=== PATIENT | male | born 1980 | race African-American/Black ===

== ENCOUNTER 2024-01-15 08:51 | Inpatient (IN) | payer OTHER ==
[~2024-01-15] VITALS: Ht 170.2 cm; Wt 89.4 kg
[2024-01-15 10:01] LABS: BASOPHILS % 0.8 % (0.0-2.0); EOSINOPHILS % 2.6 % (0.0-5.0); HEMATOCRIT. 46.5 % (42.0-52.0); HEMOGLOBIN. 15.8 g/dL (14.0-18.0); LYMPHOCYTES % 37.1 % (20.0-50.0); MEAN CORPUSCULAR HGB CONC 33.9 g/dL (31.0-37.0); MEAN CORPUSCULAR VOLUME 91.7 fL (80.0-94.0); MEAN PLATELET VOLUME 7.8 fl (7.4-10.4); MONOCYTES % 6.7 % (2.0-8.0); NEUTROPHILS % 52.8 % (40.0-76.0); PLATELET 268 x1000/uL (130-400); RED BLOOD CELL COUNT 5.08 mill/uL (4.7-6.1); RED CELL DISTRIBUTION WIDTH 12.3 % (11.6-14.6)
[2024-01-15 10:11] LABS: PROTHROMBIN TIME 10.9 sec (9.6-11.0)
[2024-01-15 10:40] LABS: CLARITY URINE CLEAR (CLEAR); COLOR URINE YELLOW (YELLOW); GLUCOSE URINE NEGATIVE (NEGATIVE); KETONES URINE NEGATIVE (NEGATIVE); LEUKOCYTE ESTERASE URINE NEGATIVE (NEGATIVE); NITRITE URINE NEGATIVE (NEGATIVE); OCCULT BLOOD URINE NEGATIVE (NEGATIVE); PH URINE 6.5 (4.5-8.0); PROTEIN URINE TRACE (NEGATIVE)
[2024-01-15 10:43] LABS: ALANINE AMINOTRANSFERASE 43 IU/L (10-49); ALBUMIN 4.4 g/dL (3.2-4.8); ASPARTATE AMINOTRANSFERASE 27 IU/L (<34); BILIRUBIN TOTAL 0.9 mg/dL (0.1-1.0); CALCIUM 9.3 mg/dL (8.7-10.4); CARBON DIOXIDE 27 mEq/L (21-32); CHLORIDE 103 mEq/L (98-107); CREATININE 1.3 mg/dL (0.6-1.3); GLUCOSE 123 mg/dL (70-105); PROTEIN TOTAL 7.7 g/dL (6.0-8.3); SODIUM 138 mEq/L (136-145); TROPONIN I HIGH SENSITIVITY 5 ng/L (3.0-53); UREA NITROGEN BLOOD 10 mg/dL (9-23)
[2024-01-15 10:53] LABS: BACTERIA URINE NONE SEEN; RBC URINE 0-2 /hpf (0-2); SQUAMOUS EPITHELIAL CELL URINE RARE /lpf (RARE/1+); WBC URINE 0-2 /hpf (0-2); YEAST URINE NONE SEEN
[2024-01-15] MEDS: ASPIRIN 325MG TABLET PO ONE (11:24)
[2024-01-15] MEDS: LABETALOL 5MG/ML SYR 20 MG/4 ML SYRINGE IV ONE (12:30)
[2024-01-15 13:10] LABS: TROPONIN I HIGH SENSITIVITY 5 ng/L (3.0-53)
[2024-01-15 20:10] VITALS: BP 149/103; PULSE 68; RESP 17; TEMP 97.6
[2024-01-15] MEDS ORDERED: DEXTROSE 50% WATER 50ML SYRINGE IV PRN (22:45)
[2024-01-15] MEDS: AMLODIPINE 10MG TABLET PO NR (22:50)
[2024-01-15] MEDS: ACETAMINOPHEN 325MG TABLET PO PRN (22:50)
[2024-01-15 23:15] VITALS: BP 149/69; PULSE 68; RESP 17; TEMP 97.6
[2024-01-15] MEDS ORDERED: ERGO1250 (23:44)
[2024-01-15] MEDS ORDERED: ASPI-1497 MT (23:44)
[2024-01-16] VITALS: BP 132/72; PULSE 61; RESP 17; TEMP 97
[2024-01-16 04:00] VITALS: BP 139/79; PULSE 58; RESP 19; TEMP 97.4
[2024-01-16] MEDS ORDERED: CLONIDINE 0.1MG TABLET PO PRN (05:00)
[2024-01-16 05:08] LABS: CARBON DIOXIDE 25 mEq/L (21-32); CHLORIDE 103 mEq/L (98-107); CHOLESTEROL 151 mg/dL (<200); CREATININE 1.1 mg/dL (0.6-1.3); GLUCOSE 87 mg/dL (70-105); HDL CHOLESTEROL 25 mg/dL (>55); LDL CHOLESTEROL 120 mg/dL (5-100); POTASSIUM 3.7 mEq/L (3.5-5.1); SODIUM 137 mEq/L (136-145); TRIGLYCERIDE 139 mg/dL (0-150); UREA NITROGEN BLOOD 9 mg/dL (9-23)
[2024-01-16 05:47] LABS: HEMATOCRIT 47.3 % (42.0-52.0); HEMOGLOBIN 15.5 g/dL (14.0-18.0); MEAN CORPUSCULAR HEMOGLOBIN 29.7 pg (28.0-32.0); MEAN CORPUSCULAR HGB CONC 32.9 g/dL (31.0-37.0); MEAN CORPUSCULAR VOLUME 90.5 fL (80.0-94.0); PLATELET 252 x1000/uL (130-400); RED BLOOD CELL COUNT 5.23 mill/uL (4.7-6.1); RED CELL DISTRIBUTION WIDTH 12.5 % (11.6-14.6); WHITE BLOOD COUNT 8.3 x1000/uL (4.5-11.0)
[2024-01-16] MEDS: BLOOD SUGAR DIAGNOSTIC STRIP TEST SCH (07:22)
[2024-01-16 08:00] VITALS: BP 131/75; PULSE 65; RESP 18; TEMP 97.9
[2024-01-16 08:05] LABS: TROPONIN I HIGH SENSITIVITY 6 ng/L (3.0-53)
[2024-01-16] MEDS: INSULIN LISPRO 100 UNITS/ML SUBCUT SCH (08:10)
[2024-01-16] MEDS: AMLODIPINE 10MG TABLET PO SCH (08:37)
[2024-01-16] MEDS: ASPIRIN 81MG TABLET PO SCH (08:37)
[2024-01-16] MEDS: METOPROLOL TARTRATE 50MG TABLET PO SCH (08:37)
[2024-01-16] MEDS: ENOXAPARIN 40MG/0.4ML SYR SUBCUT SCH (08:38)
[2024-01-16 12:00] VITALS: BP 129/70; PULSE 68; RESP 18; TEMP 97.8
[2024-01-16 16:00] VITALS: BP 125/71; PULSE 61; RESP 18; TEMP 97
[2024-01-16 16:09] LABS: *AMPHETAMINES SCREEN URINE NEGATIVE (NEGATIVE); *BARBITURATES SCREEN URINE NEGATIVE (NEGATIVE); *BENZODIAZEPINES SCREEN URINE NEGATIVE (NEGATIVE); *COCAINE SCREEN URINE NEGATIVE (NEGATIVE); CANNABINOID URINE SCREEN NEGATIVE (NEGATIVE); ECSTASY MDMA SCREEN URINE NEGATIVE (NEGATIVE); METHADONE URINE SCREEN Neg (NEGATIVE); OPIATES URINE SCREEN NEGATIVE (NEGATIVE); PHENCYCLIDINE URINE SCREEN NEGATIVE (NEGATIVE)
[2024-01-16] MEDS ORDERED: AMLO10TA80 PO (16:32)
[2024-01-16] MEDS ORDERED: HYDR-4135 MT (16:32)
[2024-01-16 20:00] VITALS: BP 135/90; PULSE 65; RESP 19; TEMP 98.1
[2024-01-17] VITALS: BP 124/83; PULSE 59; RESP 19; TEMP 97.5
[2024-01-17 04:00] VITALS: BP 115/73; PULSE 54; RESP 18; TEMP 98.1
[2024-01-17 08:00] VITALS: BP 128/79; PULSE 88; RESP 20; TEMP 98.4
[2024-01-17 11:56] VITALS: BP 125/84; PULSE 58; RESP 20; TEMP 98.1
[2024-01-17 11:57] VITALS: BP 125/84; PULSE 58; TEMP 98.1; O2SAT 96
== END 2024-01-17 14:45 | disposition home or self-care (01) | DRG 305 ==
LOC: ER 08:51 → 7WST 11:07
PROVIDERS: ADMIT Internal Medicine; ATTEND Internal Medicine
DX: I16.0 Hypertensive urgency (principal); R07.89 Other chest pain; E66.9 Obesity, unspecified; E78.00 Pure hypercholesterolemia, unspecified; I10 Essential (primary) hypertension; Z86.74 Personal history of sudden cardiac arrest; Z68.30 Body mass index [BMI] 30.0-30.9, adult; Z82.3 Family history of stroke
CPT/HCPCS: 36415; 71045; 80048; 80053; 80061; 80305; 81003; 82962; 83036; 83880; 84484; 85025; 85027; 85379; 93005; 93306; 99285; J1650; J3490

== ENCOUNTER 2024-03-12 20:51 | Emergency (ER) | payer OTHER ==
[~2024-03-12] VITALS: Ht 180.3 cm; Wt 90.0 kg
[~2024-03-12 20:51] MED LIST: AMLO10TA80 PO; ASPI-1497 MT; ERGO1250; HYDR50TA40 MT
[2024-03-12 20:52] VITALS: O2SAT 100
[2024-03-12] MEDS ORDERED: ACETAMINOPHEN 325MG TABLET PO STA (21:30)
[2024-03-12] MEDS ORDERED: ONDANSETRON 4MG ODT PO STA (21:47)
[2024-03-12] MEDS: ONDANSETRON 4MG ODT PO NR (23:38)
[2024-03-12] MEDS: ACETAMINOPHEN 325MG TABLET PO NR (23:38)
[2024-03-13 00:38] VITALS: BP 147/90; PULSE 50; RESP 19; TEMP 98.2
== END 2024-03-13 00:41 | disposition home or self-care (01) ==
LOC: ER 20:51
DX: R51.9 Headache, unspecified (principal); I10 Essential (primary) hypertension
CPT/HCPCS: 99283; Q0162; Z7610 ×3